=== PATIENT | male | born 1940 | race Caucasian/White ===

== ENCOUNTER 2018-08-10 08:37 | Outpatient (CLI) | payer MEDICARE, OTHER ==
[2018-08-10 09:23] LABS: Estimated GFR-MDRD - POC Greater than 90
[2018-08-10] MEDS ORDERED: Iopamidol 370 76% 100 ML VIAL ONE (14:17)
== END 2018-08-10 08:38 | disposition home or self-care (01) ==
LOC: BICCT 08:37
PROVIDERS: ATTEND Internal Medicine Cardiovascular Disease
DX: I71.2 Thoracic aortic aneurysm, without rupture (principal)
CPT/HCPCS: 71275; 82565

== ENCOUNTER 2021-11-17 10:13 | Inpatient (IN) | payer MEDICARE, OTHER ==
[2021-11-17 11:00] LABS: #Eosinphils 0.1 thou/uL (0.0-0.7); #Lymphocytes 1.2 thou/uL (1.20-3.40); #Monocytes 0.9 thou/uL (0.11-0.59); #Neutrophils 9.4 thou/uL (1.40-6.50); %Basophils 0.1 % (0.0-1.0); %Eosinophils 0.5 % (0.0-10.0); %Lymphocytes 10.1 % (21.0-51.0); %Monocytes 7.5 % (0.0-10.0); %Neutrophils 81.8 % (42.0-75.0); Hemoglobin 15.5 g/dL (14.0-18.0); Mean Corpuscular HGB CONC 34.9 g/dL (32.0-36.0); Mean Corpuscular Hemoglobin 34.5 pg (27.0-31.0); Mean Corpuscular Volume 98.7 fL (78.0-98.0); Mean Platelet Volume 6.5 fL (7.4-10.4); Platelet Count 222 thou/uL (130-400); RBC Distribution Width 11.1 % (11.5-14.5); White Blood Cell (WBC) Count 11.4 thou/uL (4.8-10.8)
[2021-11-17 11:20] LABS: ALT (SGPT) 20 U/L (8-55); AST (SGOT) 22 U/L (5-34); Albumin 3.9 g/dL (3.4-4.8); Alkaline Phosphatase 64 U/L (40-110); Anion Gap 10 mmol/L (10-20); BUN (Urea Nitrogen) 17 mg/dL (8.4-25.7); Calc. Creatinine Clearance 0 mL/min (70-130); Calcium 9.3 mg/dL (7.8-10.44); Carbon Dioxide 23 mmol/L (23-31); Chloride 105 mmol/L (98-107); Globulin 3.1 g/dL (2.4-3.5); Glucose 116 mg/dL (83-110); Potassium 3.7 mmol/L (3.5-5.1); Sodium 134 mmol/L (136-145)
[2021-11-17] MEDS ORDERED: Aspirin Chewable 81 MG TAB ONE (14:33)
[2021-11-17 14:49] LABS: Bacteria/HPF None Seen HPF (None Seen); Bilirubin Negative (Negative); Blood, Urine Trace (Negative); Clarity Clear (Clear); Glucose, Urine (Dipstick) Normal (Negative); Ketone, Urine Negative (Negative); Leukocyte Negative Leu/uL (Negative); Nitrite Negative (Negative); Protein, Urine (Dipstick) Negative (Neg-Trace); RBC/HPF 0-3 HPF (0-3); Specific Gravity, Urine 1.021 (1.002-1.036); Squamous Epithelial None Seen HPF (0-3); Urobilinogen Normal mg/dL (Less than 2); WBC/HPF 0-3 HPF (0-3)
[2021-11-17 16:25] LABS: SARS-CoV-2 NAA Rapid Test Not Detected (NotDetected)
[2021-11-17 16:31] LABS: Magnesium 1.9 mg/dL (1.6-2.6); Phosphorus 2.5 mg/dL (2.3-4.7)
[2021-11-17] MEDS ORDERED: Acetaminophen 325 MG TAB PO PRN (17:27)
[2021-11-17] MEDS ORDERED: Loperamide HCl 2 MG CAP PO PRN (17:27)
[2021-11-17] MEDS ORDERED: Ondansetron PF 4 MG/2 ML Vial IVP PRN (17:27)
[2021-11-17] MEDS ORDERED: Bisacodyl 5 MG TAB PO PRN (17:27)
[2021-11-17 18:07] VITALS: BMI 23.3
[2021-11-17] MEDS: Sodium Chloride 0.9% 1,000 ML IV SCH (18:40)
[2021-11-17] MEDS: Atorvastatin Calcium 40 MG TAB PO SCH (20:57)
[2021-11-18] MEDS: Sodium Chloride 0.9% 1,000 ML IV SCH (01:54)
[2021-11-18 05:50] LABS: #Eosinphils 0.4 thou/uL (0.0-0.7); #Lymphocytes 1.5 thou/uL (1.20-3.40); #Monocytes 0.8 thou/uL (0.11-0.59); #Neutrophils 6.3 thou/uL (1.40-6.50); %Basophils 0.4 % (0.0-1.0); %Eosinophils 4.7 % (0.0-10.0); %Lymphocytes 16.7 % (21.0-51.0); %Monocytes 9.1 % (0.0-10.0); %Neutrophils 69.1 % (42.0-75.0); Hemoglobin 14.1 g/dL (14.0-18.0); Mean Corpuscular HGB CONC 32.8 g/dL (32.0-36.0); Mean Corpuscular Hemoglobin 32.7 pg (27.0-31.0); Mean Corpuscular Volume 99.7 fL (78.0-98.0); Mean Platelet Volume 6.7 fL (7.4-10.4); Platelet Count 194 thou/uL (130-400); RBC Distribution Width 11.1 % (11.5-14.5); White Blood Cell (WBC) Count 9.1 thou/uL (4.8-10.8)
[2021-11-18 06:13] LABS: Anion Gap 12 mmol/L (10-20); BUN (Urea Nitrogen) 12 mg/dL (8.4-25.7); Calc. Creatinine Clearance 79 mL/min (70-130); Calcium 8.4 mg/dL (7.8-10.44); Carbon Dioxide 21 mmol/L (23-31); Cardiac Risk 2.3 (Less than 4.5); Chloride 107 mmol/L (98-107); Cholesterol 158 mg/dl (< 200 Desired); Glucose 110 mg/dL (83-110); HDL Cholesterol 68 mg/dL (>60 Neg Risk); LDL Cholesterol, Calculated 79 mg/dL; Potassium 3.8 mmol/L (3.5-5.1); Sodium 136 mmol/L (136-145); Triglycerides 54 mg/dL (Less than 150)
[2021-11-18] MEDS: Enoxaparin Sodium 40 MG/0.4 ML SYRINGE SC SCH (08:17)
[2021-11-18] MEDS: Aspirin 325 MG TAB PO SCH (08:17)
[2021-11-18] MEDS ORDERED: Aspirin 81 mg Enteric Coated Tablet PO SCH (09:00)
[2021-11-18] MEDS: Atorvastatin Calcium 40 MG TAB PO SCH (21:05)
[2021-11-19] MEDS: Enoxaparin Sodium 40 MG/0.4 ML SYRINGE SC SCH (08:21)
[2021-11-19] MEDS: Aspirin 325 MG TAB PO SCH (08:21)
[2021-11-19 15:57] VITALS: BP 142/88; TEMP 97.9
== END 2021-11-19 18:27 | disposition home health service (06) | DRG 64 ==
LOC: ERS 10:13 → NEURO 15:03 → OBSVTOIN 17:36
PROVIDERS: ADMIT Internal Medicine; ATTEND Internal Medicine
DX: I63.9 Cerebral infarction, unspecified (principal); G93.41 Metabolic encephalopathy; S32.591A Other specified fracture of right pubis, initial encounter for closed fracture; G81.91 Hemiplegia, unspecified affecting right dominant side; Z20.822 Contact with and (suspected) exposure to COVID-19; I10 Essential (primary) hypertension; E78.5 Hyperlipidemia, unspecified; W19.XXXA Unspecified fall, initial encounter; F03.90 Unspecified dementia, unspecified severity, without behavioral disturbance, psychotic disturbance, mood disturbance, and anxiety; Z79.82 Long term (current) use of aspirin; I69.320 Aphasia following cerebral infarction
CPT/HCPCS: 36415; 70450; 70551; 71045; 72125; 72170; 80048; 80053; 80061; 81003; 81015; 82533; 82607; 82746; 83605; 83735; 84100; 84484; 85025; 87086; 93005; 93306; 93880; 94760; 95712; 95819; 95957; J1650; J7050; U0002

== ENCOUNTER 2022-08-12 08:36 | Outpatient (CLI) | payer MEDICARE, OTHER ==
[2022-08-12] MEDS ORDERED: Iopamidol 370 76% 100 ML VIAL ONE (09:10)
== END 2022-08-12 08:37 | disposition home or self-care (01) ==
LOC: CT 08:36
PROVIDERS: ATTEND Internal Medicine Cardiovascular Disease
DX: I71.2 Thoracic aortic aneurysm, without rupture (principal); I77.810 Thoracic aortic ectasia
CPT/HCPCS: 71275; 82565; Q9967

== ENCOUNTER 2023-11-07 07:42 | Outpatient (CLI) | payer MEDICARE, OTHER | END 2023-11-07 07:43 | disposition home or self-care (01) | LOC: RAD 07:42 | PROVIDERS: ATTEND Family Medicine | DX: R13.19 Other dysphagia (principal) | CPT/HCPCS: 74220 ==